=== PATIENT | female | born 1985 | race Caucasian/White ===

== ENCOUNTER → 2016-11-01 | Outpatient (CLI) | payer OTHER ==
--- NOTE | 2016-11-01 14:40 | REP ---
Obstetric sonography: History: Supervision of for anatomy. Findings: Scanning demonstrates a viable single intrauterine gestation in a variable lie. motion is observed and heart rate is recorded at 144 beats per minute. An anterior grade 0 placenta is seen without evidence of previa. The umbilical cord inserts on the inferior margin of the placenta. Amniotic fluid is subjectively normal. Closed cervical length is 3.8 cm. No extrauterine abnormalities observed. No anomaly is seen. The following anatomic structures are identified and felt to be sonographically unremarkable: cranium, choroid plexus, cavum, cerebellum and posterior fossa, face and profile, lungs, four-chamber heart with left and right ventricular outflow tract views, diaphragm, left-sided stomach, abdominal wall cord insertion, three-vessel umbilical cord, kidneys and bladder, spine, upper and lower extremities. Biometry chart: BPD 4.9 cm = 20 weeks 6 days Head circumference 18.1 cm = 20 weeks 3 days Abdominal circumference 16.8 cm = 21 weeks 6 days Femur length 3.5 cm = 21 weeks 1 day Humeral length 3.5 cm = 22 weeks 0 days Cerebellar diameter 2.1 cm = 19 weeks 6 days HC/AC ratio normal 1.07. Cephalic index normal 0.75. Estimated weight 420 grams, 0 pounds 14 ounces, 49th percentile for 21 weeks 2 days. Impression: Viable single intrauterine gestation at 20 weeks 5 days by today's composite sonographic criteria. GRISELDA by today's sonography March 16, 2017. anatomic survey is felt to be complete. There is a marginal insertion of the umbilical cord on the placenta. No evidence of placenta previa. Signed by Yuval Rodrigues MD 11/01/2016 07:18 P
== END ==
LOC: M SMT 07:52
PROVIDERS: ATTEND Advanced Practice Midwife
DX: Z34.82 Encounter for supervision of other normal pregnancy, second trimester (principal); Z36 Encounter for antenatal screening of mother; Z3A.20 20 weeks gestation of pregnancy

== ENCOUNTER → 2016-12-10 | Outpatient (CLI) | payer OTHER ==
[2016-12-10 18:38] LABS: BASO % 0.4 % (0.0-1.0); EOS # 0.3 K/mm3 (0.0-0.50); EOS % 2.9 % (0.0-3.0); LARGE UNSTAINED CELL # 0.1 K/mm3 (0.0-0.4); LYMPH # 2.3 K/mm3 (1.5-4.5); LYMPH % 18.3 % (24.0-44.0); MEAN CORPUSCULAR HEMOGLOBIN 30.3 pg (27.0-33.0); MEAN CORPUSCULAR HGB CONC 33.7 g/dl (32.0-36.5); MEAN CORPUSCULAR VOLUME 90.1 fl (80.0-96.0); MONO # 0.9 K/mm3 (0.0-0.8); MONO % 7.3 % (0.0-5.0); NEUTROPHILS # 8.3 K/mm3 (1.8-7.7); NEUTROPHILS % 70.1 % (36.0-66.0); PLATELET COUNT, AUTOMATED 275 k/mm3 (150-450); RED CELL DISTRIBUTION WIDTH 12.6 % (11.5-14.5); WHITE BLOOD COUNT 11.8 K/mm3 (4.0-10.0)
== END ==
LOC: M SMT 13:18
PROVIDERS: ATTEND Advanced Practice Midwife
DX: Z34.83 Encounter for supervision of other normal pregnancy, third trimester (principal); Z36 Encounter for antenatal screening of mother

== ENCOUNTER → 2017-01-28 | Outpatient (CLI) | payer OTHER ==
--- NOTE | 2017-01-28 15:27 | REP ---
[facility] O follow-up obstetric ultrasound: Comparison is 11/01/2016. On the comparison study. The placenta was identified arising from the placenta and eccentrically at the margin of the placenta. On the study today we again identify the placenta arising eccentrically from the margin of the placenta. On the prior study the cord has a normal three-vessel cord. The three vessels are not optimally demonstrated on the study today. The placenta is anterior and fundal. There is no evidence of placenta previa. The placenta demonstrates grade 2 maturity. However, the head shadows the inferior uterine segment and the inferior uterine segment is not optimally demonstrated. Therefore, because of the eccentric cord arising from the placenta I recommend the patient return for and endovaginal Doppler assessment of the lower uterine segment to evaluate for vasa previa. There is a single intrauterine gestation in a vertex presentation. There is movement and cardiac activity with the heart rate of 131 beats per minute. The amniotic fluid volume subjectively is normal. The cervix measures 3.18 cm in length. By the ultrasound today the gestational age is 33 weeks 1 day with an GRISELDA of 03/17/2017. According to the first ultrasound during this gestation the gestational age is 33 weeks 2 days and by LMP 33-week 6 days. weight is 2148 grams (4 pounds, 11 ounces). This is the 33rd percentile for 33 weeks 6 days. Half impression: The umbilical cord arises eccentrically from the placenta. Therefore, I recommend the patient return for endovaginal Doppler ultrasound to evaluate for vasa previa. The lower uterine segment is obscured by the head on the study today. Signed by Jose Vyas MD 01/28/2017 03:19 P
== END ==
LOC: M RAD 13:45
PROVIDERS: ATTEND Advanced Practice Midwife
DX: Z36 Encounter for antenatal screening of mother (principal)

== ENCOUNTER → 2017-02-08 | Outpatient (CLI) | payer OTHER | LOC: M RAD 12:01 | PROVIDERS: ATTEND Advanced Practice Midwife | DX: O43.893 Other placental disorders, third trimester (principal); Z3A.33 33 weeks gestation of pregnancy ==

== ENCOUNTER → 2017-02-25 | Outpatient (REF) | payer OTHER ==
[~2017-02-25] MED LIST: EMOQTAB PO; INHALER; MOTR200T44 PO; PRENTAB9 PO; PULM1SUS INH; PULMICORT; TYLE500T78 PO; VENTAER IN
== END ==
LOC: M LAB REF 17:27
PROVIDERS: ATTEND Advanced Practice Midwife
DX: Z34.83 Encounter for supervision of other normal pregnancy, third trimester (principal); Z36 Encounter for antenatal screening of mother

== ENCOUNTER 2017-03-23 15:00 | Inpatient (IN) | payer OTHER ==
[2017-03-23] VITALS (27 sets, daily range): BP systolic 93–129; BP diastolic 53–72
[~2017-03-23] VITALS: Ht 157.5 cm; Wt 65.0 kg
[2017-03-23] MEDS ORDERED: PRENTAB9 PO (15:07)
[2017-03-23] MEDS ORDERED: INHALER (15:08)
[2017-03-23] MEDS ORDERED: PULMICORT (15:35)
--- NOTE | 2017-03-23 15:51 | HPE ---
DATE OF ADMISSION: 03/23/2017 REASON FOR ADMISSION: Labor. HISTORY OF PRESENT ILLNESS: Mrs. Mast is a 31-year-old 1 who presents at 40 weeks, 3 days estimated gestational age by first trimester ultrasound with complaints of contractions. She reports contractions throughout the morning and afternoon that have now increased in intensity and frequency. She reports active movement. She denies any vaginal bleeding or leakage of fluid. Her course has been only remarkable for a marginal cord insertion. This ultrasound showed no evasive previa. Followup ultrasounds have been unremarkable. She initiated care in her first trimester of the and has been appropriate throughout. PAST MEDICAL HISTORY: History of asthma. PAST SURGICAL HISTORY: She has had a shunt placed as an infant for hydrocephalus. She has had a revision approximately 10 years ago. MEDICATIONS: Include vitamins, Pulmicort, and albuterol. ALLERGIES: She has no known drug allergies. SOCIAL HISTORY: She denies any alcohol, tobacco or drug use during her . PAST OBSTETRICAL HISTORY: She is a 1. PHYSICAL EXAMINATION: VITAL SIGNS: Stable. She is afebrile. GENERAL APPEARANCE: She is well-appearing in no acute distress. She has a category 1 heart tracing with contractions on tocometer. LUNGS: Clear to auscultation bilaterally. CARDIOVASCULAR: Heart regular rate and rhythm. ABDOMEN: Gravid, nontender. Estimated weight (EFW) 2900 grams. CERVICAL EXAMINATION: Her cervix is 4-5 cm dilated, 100% effaced, 0 station, bulging bag of membranes. LABORATORY DATA: Her laboratories: Blood type is O+, antibody screen is negative. Rubella is immune. RPR is nonreactive. Hepatitis surface antigen is negative. HIV is negative. Hepatitis C is nonreactive. Chlamydia and gonorrhea screens are negative. She had a normal one-hour Glucola of 112 and she is GBS negative. ASSESSMENT: 1. Mrs. Mast is a 31-year-old 1 who is at 40 weeks, 3 days estimated gestational age by first trimester ultrasound here in active labor. 2. Reassuring status. PLAN: 1. Admit to labor and delivery. CBC, rapid plasma reagin (RPR), type and screen. 2. The patient has been thoroughly counseled in regards to medications as well as procedures performed in labor delivery. I have also discussed emergency surgery, blood products, anesthesia, and she desires to proceed with admission. 3. The patient is a good candidate for an epidural. 4. Anticipate spontaneous vaginal delivery.
[2017-03-23 16:08] LABS: MEAN CORPUSCULAR HEMOGLOBIN 29.7 pg (27.0-33.0); MEAN CORPUSCULAR HGB CONC 34.3 g/dl (32.0-36.5); MEAN CORPUSCULAR VOLUME 86.4 fl (80.0-96.0); RED CELL DISTRIBUTION WIDTH 13.7 % (11.5-14.5); WHITE BLOOD COUNT 12.9 K/mm3 (4.0-10.0)
[2017-03-23] MEDS ORDERED: LACTATED RINGER'S 1000 ML IV STA (16:44)
[2017-03-23] MEDS ORDERED: FENTANYL 2MCG/ML ROPIVACAINE 0.2% IN 0.9% NACL 200ML IVBAG As Ordered ONE (16:46)
[2017-03-23] MEDS: LR 1,000 ML IV SCH ×2 (18:00→18:57)
[2017-03-23] MEDS ORDERED: LACTATED RINGER'S 1000 ML IV PRN (18:30)
[2017-03-23] MEDS ORDERED: FENTANYL/ROPIVACAINE/NACL BAG 200 ML EPIDURAL SCH (18:30)
[2017-03-23] MEDS ORDERED: ePHEDrine SULFATE 25 MG/5 ML(5MG/ML) SYRINGE IV PRN (18:30)
[2017-03-23] MEDS ORDERED: NALOXONE INJ 0.4 MG/1 ML VIAL (J2310) IV PRN (18:30)
[2017-03-23] MEDS ORDERED: EPIDURAL/PCA KEYS XX PRN (18:30)
[2017-03-23] MEDS ORDERED: diphenhydrAMINE INJ 50MG/ML VIAL (J1200) IV PRN (18:30)
[2017-03-23] MEDS ORDERED: ONDANSETRON 4MG/2ML VIAL (J2405) IV PRN (18:30)
[2017-03-23] MEDS ORDERED: REFRIGERATOR IV KEYS XX PRN (18:30)
[2017-03-23] MEDS ORDERED: EPIDURAL COMMENT XX SCH (18:30)
[2017-03-23] MEDS ORDERED: OXYTOCIN DRIP 30 UNITS in APPROPRIATE DILUENT 1 EA IV SCH (19:00)
[2017-03-23] MEDS: BUDESONIDE 180MCG INHALER (PULMICORT FLEXHALER) INH SCH (19:15)
[2017-03-24] VITALS (18 sets, daily range): BP systolic 104–138; BP diastolic 56–76
[2017-03-24] MEDS: ACETAMINOPHEN 500 MG TAB PO PRN ×3 (03:45→18:34)
[2017-03-24] MEDS: AMPICILLIN SOD/SULBACTAM SOD 3 GM in D5W MINI-BAG PLUS 100 ML IV SCH ×3 (03:45→18:34)
[2017-03-24] MEDS ORDERED: ANUSOL HC CREAM 30GM TOP PRN (07:45)
[2017-03-24] MEDS ORDERED: DOCUSATE SODIUM 100 MG CAP PO PRN (07:45)
[2017-03-24] MEDS ORDERED: RHOGAM 300 MCG (1500 IU) INJ (J2790) IM SCH (07:45)
[2017-03-24] MEDS ORDERED: DIBUCAINE 1% OINTMENT 30GM TOP PRN (07:45)
[2017-03-24] MEDS ORDERED: miSOPROStol 200 MCG TAB (S0191) PR ONE (07:45)
[2017-03-24] MEDS ORDERED: MOM 30ML SUSPENSION UDC PO PRN (07:45)
[2017-03-24] MEDS ORDERED: METHYLERGONOVINE MALEATE 0.2 MG TAB PO PRN (07:45)
[2017-03-24] MEDS ORDERED: MEASLES,MUMPS,RUBELLA VACCINE INJ (MMR-II) (90707) SC SCH (07:45)
[2017-03-24] MEDS: BUDESONIDE 180MCG INHALER (PULMICORT FLEXHALER) INH SCH ×2 (08:09→20:46)
[2017-03-24] MEDS: PRENATAL VITAMINS CHEWABLE TABLET PO SCH (12:29)
[2017-03-24] MEDS: IBUPROFEN 800 MG TAB PO PRN (20:19)
[2017-03-25] MEDS: AMPICILLIN SOD/SULBACTAM SOD 3 GM in D5W MINI-BAG PLUS 100 ML IV SCH ×5 (00:29→23:02)
[2017-03-25] MEDS: IBUPROFEN 800 MG TAB PO PRN ×3 (03:08→21:15)
[2017-03-25 06:00] VITALS: BP 112/69
--- NOTE | 2017-03-25 08:34 | DN ---
DATE: 03/24/2017 Artificial rupture of membranes, clear fluid 0106 hours. Utilized epidural for labor coping. Temperature max 101.6. Treated with Unasyn 3 grams IV. Fully dilated at 0325, viable male delivered, AMITA compound with posterior right arm at 0637 hours. Spontaneous respirations with stimulation. Transitioned on maternal abdomen. Cord doubly clamped and cut once pulsations ceased. scores were 9 and 9. Placenta David intact with three-vessel cord at 0642 hours. Fundus firmed with massage and IV Pitocin bolus. However, became boggy again. Misoprostol 1000 mcg per rectum given with good control of bleeding. First-degree perineal laceration repaired with #3-0 Vicryl Rapide. A right labial laceration was also reapproximated with one suture of the same material. Estimated blood loss was 250 mL. weight is pending. Sponge, sharp and instrument count correct.
[2017-03-25] MEDS: BUDESONIDE 180MCG INHALER (PULMICORT FLEXHALER) INH SCH ×2 (08:54→21:02)
[2017-03-25] MEDS: PRENATAL VITAMINS CHEWABLE TABLET PO SCH (09:43)
[2017-03-25 10:00] VITALS: BP 118/74
[2017-03-25 18:15] VITALS: BP 110/66
[2017-03-26] MEDS: IBUPROFEN 800 MG TAB PO PRN ×2 (03:21→12:45)
[2017-03-26] MEDS: AMPICILLIN SOD/SULBACTAM SOD 3 GM in D5W MINI-BAG PLUS 100 ML IV SCH ×2 (05:04→07:27)
[2017-03-26 06:00] VITALS: BP 113/66
[2017-03-26] MEDS: BUDESONIDE 180MCG INHALER (PULMICORT FLEXHALER) INH SCH (09:00)
[2017-03-26] MEDS: PRENATAL VITAMINS CHEWABLE TABLET PO SCH (09:12)
[2017-03-26] MEDS ORDERED: TYLE500T78 PO (12:16)
[2017-03-26] MEDS ORDERED: MOTR200T44 PO (12:16)
--- NOTE | 2017-03-27 21:46 | DSES ---
DATE OF ADMISSION: 03/23/2017 DATE OF DISCHARGE: 03/26/2017 FINAL DIAGNOSIS: Intrauterine at 40-3/7 weeks gestation, admitted in early labor. DIAGNOSIS: Status post spontaneous vaginal delivery. CONDITION ON DISCHARGE: Stable DISCHARGE INSTRUCTIONS: Given. The patient is to call if there is any severe bleeding, pain or temperature greater than 101. BRIEF HISTORY: Zuleyma is a 31-year-old female 1, para 0, who was admitted at 40-3/7 weeks gestation in labor. She progressed to fully dilated and had a vaginal delivery. She was then transferred to maternity for care. she did well, remained afebrile all throughout her hospital stay. On day number two, she was seen and examined, which was found to be within normal limits. At this point a decision was made for discharge. She is discharged with instruction to follow up with her sex worker or escort (OB) providers in approximately six weeks for care.
[2017-06-23] MEDS ORDERED: PULM1SUS INH (15:24)
[2017-06-23] MEDS ORDERED: VENTAER IN (15:24)
[2017-06-23] MEDS ORDERED: EMOQTAB PO (15:24)
== END 2017-03-26 12:55 | disposition home or self-care (01) | DRG 775 ==
LOC: M LDI 15:00 → M OBS 03-24 08:10
PROVIDERS: ADMIT Advanced Practice Midwife; ATTEND Advanced Practice Midwife
PROC: 10E0XZZ Delivery of Products of Conception, External Approach (ICD-10-PCS; principal; 2017-03-24)
PROC: 0HQ9XZZ Repair Perineum Skin, External Approach (ICD-10-PCS; 2017-03-24)
DX: O48.0 Post-term pregnancy (principal); Z37.0 Single live birth; Z3A.40 40 weeks gestation of pregnancy; O70.0 First degree perineal laceration during delivery

== ENCOUNTER 2017-07-01 06:57 | Day surgery (SDC) | payer OTHER ==
[~2017-07-01] VITALS: Ht 157.5 cm; Wt 59.0 kg
[2017-07-01] MEDS ORDERED: LR 1,000 ML IV SCH ×2 (07:00→10:30)
[2017-07-01 08:12] LABS: CONTROL LINE UCG INT CTR LINE PRESENT
[2017-07-01] MEDS ORDERED: fentaNYL 100 MCG/2 ML INJECTION (J3010) As Ordered ONE ×2 (08:27→09:58)
[2017-07-01] MEDS ORDERED: MIDAZOLAM INJ 2 MG/2 ML VIAL (J2250) As Ordered ONE (08:27)
[2017-07-01] MEDS ORDERED: BUPIVACAINE/EPIN 0.25% 30 ML VIAL As Ordered ONE (08:49)
[2017-07-01] MEDS ORDERED: NEOSTIGMINE 10 MG/10 ML VIAL (J2710) As Ordered ONE (09:48)
[2017-07-01] MEDS ORDERED: GLYCOPYRROLATE INJ 0.2 MG/ML 2 ML VIAL As Ordered ONE (09:48)
[2017-07-01] MEDS ORDERED: PROPOFOL 200 MG/20 ML VIAL As Ordered ONE (09:48)
[2017-07-01] MEDS ORDERED: LIDOCAINE 2% INJ 100 MG/5 ML SDV (FOR ANES.) As Ordered ONE (09:48)
[2017-07-01] MEDS ORDERED: ROCURONIUM BROMIDE 50 MG/5 ML VIAL/SYRINGE As Ordered ONE (09:49)
[2017-07-01] MEDS ORDERED: KETOROLAC 60 MG/2 ML VIAL (J1885) As Ordered ONE (09:59)
[2017-07-01] MEDS ORDERED: NORCO, ANEXSIA 5/325MG TABLET (HYDROcodone/ACETAMINOPHEN) PO PRN (10:30)
[2017-07-01] MEDS ORDERED: ONDANSETRON 4MG/2ML VIAL (J2405) IV PRN (10:30)
[2017-07-01] MEDS ORDERED: fentaNYL 100 MCG/2 ML INJECTION (J3010) IV PRN (10:30)
[2017-07-01] MEDS: PERCOCET 5MG/325MG TAB PO PRN ×2 (10:38→11:12)
[2017-07-01 12:20] VITALS: BP 118/69
--- NOTE | 2017-07-03 08:08 | RO ---
DATE OF PROCEDURE: 07/01/2017 PREOPERATIVE DIAGNOSIS: Umbilical hernia. POSTOPERATIVE DIAGNOSIS: Umbilical hernia. PROCEDURE: Laparoscopic umbilical hernia repair. SURGEON: Jose Jensen DO SAFETY TECHNICIAN: None. ANESTHESIA: General. ESTIMATED BLOOD LOSS: 5 mL. COMPLICATIONS: None. INDICATION FOR PROCEDURE: Patient is a 31-year-old female who is currently . During the end of her , she developed a bulge at her umbilicus. Since , she has had persistent pain there. Recommendation was to proceed with laparoscopic, possible open umbilical hernia repair. Risks and benefits of the procedure, not limited to, but including bleeding, infection, hernia formation, damage to surrounding structures, hernia recurrence and need for further surgery were discussed in detail with the patient. Informed consent was obtained and procedure was planned. PROCEDURE: The patient was brought back to operating room 6. After sufficient sedation, the abdomen was sterilely prepped and draped. Next, a time out was done to confirm proper patient and proper procedure. Following that, a 5 mm incision was made in the left upper quadrant. A Veress needle was inserted and the abdomen was insufflated to 15 mmHg. Next, the Veress needle was removed. A 5 mm OptiView port was used to gain access to the abdomen. Once abdomen was entered, another 5 mm port was placed in the left lower quadrant. Using the ENSEAL, the peritoneum was incised circumferentially around the hernia defect. This was then removed along with some preperitoneal fat that was in the hernia defect. Once this was completed, the hernia sac was removed from the body. A 9 cm round Parietex composite mesh was taken out and sutures placed all four corners. This was rolled up and placed inside of the abdomen. Transvaginal #0 Vicryl sutures were brought out through the abdominal wall using Rodriguez-Nixon needle and tied in place. Then a row of SecureStrap tacks were placed around perimeter of the mesh in two rows to secure it. Once this was completed, the abdomen was desufflated. Skin incisions were closed with #4-0 Vicryl subcuticular sutures. The abdomen was then cleaned and dried. Steri-Strips, 4x4 and tape were applied thus ending procedure.
== END 2017-07-01 12:25 | disposition home or self-care (01) ==
LOC: M SDC 06:57
PROVIDERS: ATTEND Surgery
DX: K42.9 Umbilical hernia without obstruction or gangrene (principal); J45.909 Unspecified asthma, uncomplicated; Z79.899 Other long term (current) drug therapy; Z91.030 Bee allergy status
CPT/HCPCS: 49652; 84703; 88302; C1781; J0690; J1885; J2250; J2710; J3010

== ENCOUNTER → 2019-03-20 | Outpatient (REF) | payer OTHER ==
[2019-03-22 14:08] LABS: HPV HYBRID CAPTURE II Negative (Negative)
== END ==
LOC: M LAB REF 16:47
PROVIDERS: ATTEND Advanced Practice Midwife
DX: Z12.4 Encounter for screening for malignant neoplasm of cervix (principal)

== ENCOUNTER → 2021-01-15 | Outpatient (CLI) | payer OTHER ==
--- NOTE | 2021-01-15 09:15 | REP ---
INDICATION: TWINS VS SUBCHORIONIC HEMATOMA COMPARISON: None. TECHNIQUE: Transabdominal 1st trimester obstetrical ultrasound with color Doppler evaluation. FINDINGS: Single live early intrauterine is appreciated. Gestational sac with pole identified. Yaurel-rump length of 6.6 cm corresponds to 12 weeks 6 days gestational age with estimated date of delivery 07/24/2021. heart rate equals 153 beats per minute. Placenta identified posteriorly and grade 0. Cervix measures 3.4 cm in length and appears closed. No subchorionic hemorrhage or evidence for 2nd gestation. IMPRESSION: Single live early intrauterine at 12 weeks 6 days gestational age. Complete anatomical assessment should be performed and 19-20 weeks. <Electronically signed by Jasper Patten > 01/15/21 [id number]
== END ==
LOC: M WHC 08:10
PROVIDERS: ATTEND Advanced Practice Midwife
DX: Z34.01 Encounter for supervision of normal first pregnancy, first trimester (principal); Z3A.12 12 weeks gestation of pregnancy

== ENCOUNTER → 2021-01-15 | Outpatient (REF) | payer OTHER ==
[2021-01-15 10:49] LABS: HEMATOCRIT 38.5 % (36.0-47.0); HEMOGLOBIN 13.2 g/dl (12.0-15.5); MEAN CORPUSCULAR HEMOGLOBIN 30.1 pg (27.0-33.0); MEAN CORPUSCULAR HGB CONC 34.3 g/dl (32.0-36.5); MEAN CORPUSCULAR VOLUME 87.7 fl (80.0-96.0); PLATELET COUNT, AUTOMATED 269 10^3/uL (150-450); RED BLOOD COUNT 4.39 10^6/uL (4.00-5.40); WHITE BLOOD COUNT 9.5 10^3/uL (4.0-10.0)
[2021-01-15 13:39] LABS: HIV 1&2 SCREEN CENTAUR NEGATIVE (NEGATIVE)
== END ==
LOC: M PLALAB 08:56
PROVIDERS: ATTEND Advanced Practice Midwife
DX: Z34.01 Encounter for supervision of normal first pregnancy, first trimester (principal)

== ENCOUNTER → 2021-02-20 | Outpatient (REF) | payer OTHER | LOC: M SFHCWAGY 12:59 | PROVIDERS: ATTEND Obstetrics & Gynecology | DX: Z34.92 Encounter for supervision of normal pregnancy, unspecified, second trimester (principal); Z3A.17 17 weeks gestation of pregnancy ==

== ENCOUNTER → 2021-03-06 | Outpatient (CLI) | payer OTHER ==
--- NOTE | 2021-03-06 18:01 | REP ---
INDICATION: ANATOMY. COMPARISON: 01/15/2021 TECHNIQUE: Second trimester anatomy screen FINDINGS: Scanning demonstrates a viable single intrauterine gestation in a variable lie. motion is observed and heart rate is recorded at beats per minute. A posterior, grade zero placenta is seen without evidence of previa and with a mid cord insertion. Amniotic fluid is subjectively normal. Closed cervical length is measured at 3.4 cm transabdominally. No extrauterine abnormality is observed. There has been appropriate interval growth. No anomaly is seen. The following anatomic structures are identified and felt to be sonographically unremarkable: cranium, choroid plexus, cavum, cerebellum and posterior fossa, face and profile, lungs, four-chamber heart with left and right ventricular outflow tract views, diaphragm, left-sided stomach, abdominal wall cord insertion, three-vessel umbilical cord, kidneys and bladder, spine, and upper and lower extremities. Biometry chart: BPD 4.8 cm; 20 weeks 3 days Head circumference 17.4 cm; 20 weeks days Abdominal circumference 15.2 cm; 20 weeks 3 days Femur length 3.2 cm; 19 weeks 6 days Humeral length 2.9 cm; 19 weeks 4 days HC/AC ratio normal 1.15 Cephalic index normal 0.77 Estimated weight 336 grams, 0 pounds 11 ounces, 63 percentile for 19 weeks 6 days. IMPRESSION: Viable single intrauterine gestation at 20 weeks 0 days by today's composite sonographic criteria. Expected gestational age estimate based on prior sonography is 19 weeks is 6 days. GRISELDA by prior sonography 07/25/2021. No anomaly. <Electronically signed by Christian Srinivasan > 03/06/21 [id number]
== END ==
LOC: M WHC 15:08
PROVIDERS: ATTEND Advanced Practice Midwife
DX: Z34.82 Encounter for supervision of other normal pregnancy, second trimester (principal)

== ENCOUNTER → 2021-04-17 | Outpatient (CLI) | payer OTHER ==
[2021-04-17 13:53] LABS: HEMATOCRIT 35.6 % (36.0-47.0); HEMOGLOBIN 11.8 g/dl (12.0-15.5); MEAN CORPUSCULAR HEMOGLOBIN 30.3 pg (27.0-33.0); MEAN CORPUSCULAR HGB CONC 33.1 g/dl (32.0-36.5); MEAN CORPUSCULAR VOLUME 91.3 fl (80.0-96.0); PLATELET COUNT, AUTOMATED 251 10^3/uL (150-450); WHITE BLOOD COUNT 10.1 10^3/uL (4.0-10.0)
== END ==
LOC: M PLALAB 10:28
PROVIDERS: ATTEND Obstetrics & Gynecology
DX: Z34.82 Encounter for supervision of other normal pregnancy, second trimester (principal)

== ENCOUNTER → 2021-05-15 | Outpatient (REF) | payer OTHER ==
[2021-05-15 20:16] LABS: GC DNA AMPLIFICATION NEGATIVE (NEGATIVE)
== END ==
LOC: M SFHCWAGY 16:53
PROVIDERS: ATTEND Obstetrics & Gynecology
DX: Z34.82 Encounter for supervision of other normal pregnancy, second trimester (principal)

== ENCOUNTER → 2021-06-16 | Outpatient (CLI) | payer OTHER ==
--- NOTE | 2021-06-16 12:08 | REP ---
INDICATION: GROWTH SIZE DATE DISCREPANCY. COMPARISON: 03/06/2021. TECHNIQUE: Real-time sonographic evaluation of the gravid uterus performed. FINDINGS: Estimated gestational age is34 weeks 3 days, EDC 07/25/2021. Today's measurements indicate appropriate growth. Presentation: Cephalic Placenta posterior, grade 1, without evidence of placenta previa. heart rate is recorded at 123 beats per minute. Amniotic fluid is subjectively normal. DEREK 15.9, normal 8.0-24.8. Closed cervical length is measured at 3.6 cm. Biometry chart: BPD: 83 mm, 33 weeks 84 days, 37th percentile. HC: 306 mm, 34 weeks 1 days, 45th percentile AC: 315 mm, 35 weeks 3 days, 64th percentile Femur length: 69 mm, 35 weeks 2 days, 63rd percentile HC to AC ratio: 0.97, normal range 0.94-1.13. Estimated weight: 2576g, 63rd percentile. IMPRESSION: Viable single intrauterine gestation as above. <Electronically signed by Jose Kellogg > 06/16/21 [id number]
== END ==
LOC: M WHC 09:25
PROVIDERS: ATTEND Obstetrics & Gynecology
DX: Z36.2 Encounter for other antenatal screening follow-up (principal); O26.843 Uterine size-date discrepancy, third trimester; Z3A.34 34 weeks gestation of pregnancy

== ENCOUNTER → 2021-07-02 | Outpatient (REF) | payer OTHER | LOC: M SFHCWAGY 09:56 | PROVIDERS: ATTEND Specialist | DX: Z34.83 Encounter for supervision of other normal pregnancy, third trimester (principal); Z3A.00 Weeks of gestation of pregnancy not specified ==

== ENCOUNTER 2021-07-15 09:08 | Outpatient (CLI) | payer OTHER ==
[~2021-07-15] VITALS: Ht 157.5 cm; Wt 74.9 kg
[2021-07-15 09:29] VITALS: BP 142/67
[2021-07-15] MEDS ORDERED: ACET-907 PO (09:40)
[2021-07-15 09:45] VITALS: BP 136/77
[2021-07-15 10:48] LABS: HEMATOCRIT 37.9 % (36.0-47.0); HEMOGLOBIN 12.7 g/dl (12.0-15.5); MEAN CORPUSCULAR HEMOGLOBIN 29.5 pg (27.0-33.0); MEAN CORPUSCULAR HGB CONC 33.5 g/dl (32.0-36.5); MEAN CORPUSCULAR VOLUME 88.1 fl (80.0-96.0); PLATELET COUNT, AUTOMATED 219 10^3/uL (150-450); WHITE BLOOD COUNT 11.1 10^3/uL (4.0-10.0)
[2021-07-15 11:05] LABS: ALT/SGPT 13 U/L (12-78); BILIRUBIN,TOTAL 0.6 MG/DL (0.2-1.0); CREATININE FOR GFR 0.46 MG/DL (0.55-1.30); GLOMERULAR FILTRATION RATE > 60.0 (>60); LDH LACTATE DEHYDROGENASE 152 U/L (84-246); URIC ACID 3.4 MG/DL (2.6-6.0)
[2021-07-15 11:21] LABS: CREATININE,RANDOM URINE 19.1 MG/DL; TOTAL PROTEIN,RANDOM URINE 5.2 MG/DL (0.0-12.0)
[2021-07-15 11:26] VITALS: BP 112/77
[2021-07-15 11:38] VITALS: BP 110/71
== END 2021-07-15 12:24 | disposition home or self-care (01) ==
LOC: M LDO 09:08
PROVIDERS: ATTEND Advanced Practice Midwife
DX: O36.8130 Decreased fetal movements, third trimester, not applicable or unspecified (principal); O09.523 Supervision of elderly multigravida, third trimester; O26.893 Other specified pregnancy related conditions, third trimester; Z3A.38 38 weeks gestation of pregnancy
CPT/HCPCS: 36415; 59025; 76815; 76819; 76820; 82247; 82565; 82570; 83615; 84156; 84450; 84460; 84550; 85027; G0378; G0463

== ENCOUNTER 2021-07-17 23:57 | Inpatient (IN) | payer OTHER ==
[~2021-07-17 23:57] MED LIST changes: +ACET-907 PO
[2021-07-18] MEDS ORDERED: OXYTOCIN 30 UNITS IN 0.9% NaCl 500ML IV BAG (J2590) As Ordered ONE (00:14)
[2021-07-18] MEDS ORDERED: LIDOCAINE 1% MDV 20ML VIAL As Ordered ONE (00:33)
[2021-07-18 00:43] LABS: HEMATOCRIT 38.9 % (36.0-47.0); HEMOGLOBIN 13.1 g/dl (12.0-15.5); MEAN CORPUSCULAR HEMOGLOBIN 29.2 pg (27.0-33.0); MEAN CORPUSCULAR HGB CONC 33.7 g/dl (32.0-36.5); MEAN CORPUSCULAR VOLUME 86.6 fl (80.0-96.0); PLATELET COUNT, AUTOMATED 247 10^3/uL (150-450); RED BLOOD COUNT 4.49 10^6/uL (4.00-5.40); WHITE BLOOD COUNT 14.1 10^3/uL (4.0-10.0)
[2021-07-18] MEDS ORDERED: LACTATED RINGER'S 1000 ML IV STA (00:57)
[2021-07-18] MEDS ORDERED: LR 1,000 ML IV SCH (01:00)
[2021-07-18] MEDS ORDERED: ACETAMINOPHEN TAB 650MG DOSE (2X325MG) PO PRN (01:00)
[2021-07-18] MEDS ORDERED: LIDOCAINE 1% MDV 20ML VIAL INFIL PRN (01:00)
[2021-07-18] MEDS ORDERED: DIBUCAINE 1% OINTMENT 30GM TOP PRN (01:00)
[2021-07-18] MEDS ORDERED: MOM 30ML SUSPENSION UDC PO PRN (01:00)
[2021-07-18] MEDS ORDERED: DOCUSATE SODIUM 100MG CAPSULE PO PRN (01:00)
[2021-07-18] MEDS ORDERED: IBUPROFEN 800 MG TAB PO PRN (01:00)
[2021-07-18] MEDS ORDERED: RHOGAM 300 MCG (1500 IU) INJ (J2790) IM SCH (01:00)
[2021-07-18] MEDS ORDERED: ANUSOL HC CREAM 30GM TOP PRN (01:00)
[2021-07-18] MEDS ORDERED: MEASLES,MUMPS,RUBELLA VACCINE INJ (MMR-II) (90707) SC SCH (01:00)
[2021-07-18] MEDS ORDERED: METHYLERGONOVINE MALEATE 0.2 MG TAB PO PRN (01:00)
[2021-07-18] MEDS ORDERED: OXYTOCIN DRIP 30 UNITS in IV 1 EA IV PRN (01:00)
[2021-07-18] MEDS ORDERED: ACETAMINOPHEN 500 MG TAB PO PRN (01:00)
[2021-07-18] MEDS ORDERED: IBUPROFEN 600MG TAB PO PRN (01:00)
[2021-07-18 01:27] LABS: CORD GAS ABE A -5.4; CORD GAS HCO3 A 19.7 MEQ/L; CORD GAS O2 SAT A 86.1 %; CORD GAS PCO2 A 37.5 mmHg; CORD GAS PH A 7.339 UNITS; CORD GAS PO2 A 45.1 mmHg; CORD GAS SBC A 19.8 MEQ/L; CORD GAS TCO2 A 20.9 MEQ/L
[2021-07-18 01:29] LABS: CORD GAS ABE V -4.9; CORD GAS HCO3 V 18.4 MEQ/L; CORD GAS O2 SAT V 79.3 %; CORD GAS PCO2 V 30.2 mmHg; CORD GAS PH V 7.403 UNITS; CORD GAS PO2 V 36.1 mmHg; CORD GAS TCO2 V 19.3 MEQ/L
[2021-07-18 01:48] VITALS: BP 117/58
[2021-07-18 02:03] VITALS: BP 112/56
[2021-07-18 03:03] VITALS: BP 124/59
[2021-07-18 06:02] VITALS: BP 124/62
[2021-07-18] MEDS: PRENATAL VITAMINS CHEWABLE TABLET PO SCH (07:43)
[2021-07-18 18:23] VITALS: BP 104/55
[2021-07-19 06:00] VITALS: BP 117/68
[2021-07-19] MEDS: PRENATAL VITAMINS CHEWABLE TABLET PO SCH (08:28)
[2021-07-19 17:57] VITALS: BP 112/56
[2021-07-20 06:00] VITALS: BP 118/66
[2021-07-20] MEDS: PRENATAL VITAMINS CHEWABLE TABLET PO SCH (09:10)
[2021-07-20] MEDS ORDERED: ACET-683 PO (11:53)
[2021-07-20] MEDS ORDERED: IBUP80TA PO (11:53)
[2021-07-20] MEDS ORDERED: PRENCHW PO (11:53)
== END 2021-07-20 15:10 | disposition home or self-care (01) | DRG 807 ==
LOC: M LDO 23:57 → M LDI 07-18 00:08 → M OBS 07-18 02:24
PROVIDERS: ADMIT Advanced Practice Midwife; ATTEND Advanced Practice Midwife
PROC: 10E0XZZ Delivery of Products of Conception, External Approach (ICD-10-PCS; principal; 2021-07-18)
PROC: 0HQ9XZZ Repair Perineum Skin, External Approach (ICD-10-PCS; 2021-07-18)
PROC: 0H9AXZZ Drainage of Inguinal Skin, External Approach (ICD-10-PCS; 2021-07-18)
DX: O70.0 First degree perineal laceration during delivery (principal); Z37.0 Single live birth; Z3A.39 39 weeks gestation of pregnancy; Z91.030 Bee allergy status; O09.523 Supervision of elderly multigravida, third trimester; L72.3 Sebaceous cyst; O99.72 Diseases of the skin and subcutaneous tissue complicating childbirth

== ENCOUNTER → 2021-09-02 | Outpatient (CLI) | payer OTHER ==
[~2021-09-02] MED LIST changes: +ACET-683 PO; +IBUP80TA PO; +PRENCHW PO
== END ==
LOC: M LABSMTC 09:32
PROVIDERS: ATTEND Anesthesiology
DX: Z01.812 Encounter for preprocedural laboratory examination (principal); Z20.822 Contact with and (suspected) exposure to COVID-19

== ENCOUNTER 2021-09-07 09:22 | Day surgery (SDC) | payer OTHER ==
[~2021-09-07] VITALS: Ht 157.5 cm; Wt 64.9 kg
[2021-09-07] MEDS ORDERED: ARNU1INH INH (10:01)
[2021-09-07 10:08] LABS: HEMATOCRIT 43.7 % (36.0-47.0); HEMOGLOBIN 14.1 g/dl (12.0-15.5); MEAN CORPUSCULAR HGB CONC 32.3 g/dl (32.0-36.5); MEAN CORPUSCULAR VOLUME 89.7 fl (80.0-96.0); PLATELET COUNT, AUTOMATED 349 10^3/uL (150-450); RED BLOOD COUNT 4.87 10^6/uL (4.00-5.40); WHITE BLOOD COUNT 9.4 10^3/uL (4.0-10.0)
[2021-09-07 11:14] LABS: HCG, SERUM QUALITATIVE NEGATIVE (NEGATIVE)
[2021-09-07] MEDS ORDERED: BUPIVACAINE HCL 0.25% 10ML VIAL As Ordered ONE (11:26)
[2021-09-07] MEDS ORDERED: HYDROmorphone HCL 2MG/ML 1ML VIAL As Ordered ONE (11:53)
[2021-09-07] MEDS ORDERED: ROCURONIUM BROMIDE 50 MG/5 ML VIAL As Ordered ONE (11:53)
[2021-09-07] MEDS ORDERED: propofoL 200 MG/20 ML VIAL As Ordered ONE (11:53)
[2021-09-07] MEDS ORDERED: KETOROLAC 60MG 2ML VIAL As Ordered ONE (11:53)
[2021-09-07] MEDS ORDERED: LIDOCAINE 2% 100MG/5ML SDV (FOR ANES.) As Ordered ONE (11:53)
[2021-09-07] MEDS ORDERED: dexameTHASONE 4 MG/ML 1ML VIAL (J1100 PER 1MG) As Ordered ONE (11:53)
[2021-09-07] MEDS ORDERED: MIDAZOLAM INJ 2MG/2ML VIAL (J2250 PER 1MG) As Ordered ONE (11:53)
[2021-09-07] MEDS ORDERED: fentaNYL 100 MCG/2 ML INJECTION (J3010) As Ordered ONE (11:53)
[2021-09-07] MEDS ORDERED: ONDANSETRON 4MG/2ML VIAL As Ordered ONE (11:54)
[2021-09-07] MEDS ORDERED: OXYC1TAB23 PO (11:59)
[2021-09-07] MEDS ORDERED: IBUP-1022 PO (12:00)
[2021-09-07] MEDS ORDERED: SUGAMMADEX SODIUM 500 MG/5 ML VIAL (BRIDION) As Ordered ONE (12:03)
[2021-09-07] MEDS ORDERED: LEVALBUTEROL 1.25 MG/0.5 ML CONCENTRATE NEB As Ordered ONE (13:23)
[2021-09-07] MEDS ORDERED: ONDANSETRON 4MG/2ML VIAL IV PRN (13:35)
[2021-09-07] MEDS ORDERED: fentaNYL 100 MCG/2 ML INJECTION (J3010) IV PRN (13:35)
[2021-09-07] MEDS ORDERED: oxyCODONE 5MG TAB PO PRN (13:35)
[2021-09-07] MEDS ORDERED: LEVALBUTEROL 1.25 MG/0.5 ML CONCENTRATE NEB INH ONE (13:35)
[2021-09-07] MEDS ORDERED: LR 1,000 ML IV SCH (13:35)
[2021-09-07 14:50] VITALS: BP 124/70
== END 2021-09-07 15:15 | disposition home or self-care (01) ==
LOC: M SDC 09:22
PROVIDERS: ATTEND Specialist
DX: Z30.2 Encounter for sterilization (principal); J45.909 Unspecified asthma, uncomplicated; Z79.899 Other long term (current) drug therapy; Z98.2 Presence of cerebrospinal fluid drainage device
CPT/HCPCS: 36415; 58661; 84703; 85027; 88302; J1100; J1170; J1885; J2250; J2405; J3010

== ENCOUNTER 2025-07-22 10:02 | Emergency (ER) | payer OTHER, BC ==
[~2025-07-22] VITALS: Ht 157.5 cm; Wt 76.1 kg
[~2025-07-22 10:02] MED LIST changes: +ARNU1INH INH; +IBUP600T42 PO; +OXYC1TAB23 PO
[2025-07-22] MEDS: IBUPROFEN 600 MG TAB PO ONE (11:07)
[2025-07-22 13:01] VITALS: BP 129/60; TEMP 97.6; O2SAT 100
== END 2025-07-22 13:14 | disposition home or self-care (01) ==
LOC: M ED 10:02
DX: S20.214A Contusion of middle front wall of thorax, initial encounter (principal); I45.10 Unspecified right bundle-branch block; V49.40XA Driver injured in collision with unspecified motor vehicles in traffic accident, initial encounter; J45.909 Unspecified asthma, uncomplicated; Z91.030 Bee allergy status; Z79.1 Long term (current) use of non-steroidal anti-inflammatories (NSAID); Z79.899 Other long term (current) drug therapy; Y99.9 Unspecified external cause status; Y92.410 Unspecified street and highway as the place of occurrence of the external cause; Y93.89 Activity, other specified